=== PATIENT | male | born 1985 ===

== ENCOUNTER 2018-07-19 03:03 | Observation (INO) | payer BC, OTHER ==
[~2018-07-19] VITALS: Ht 180.3 cm; Wt 150.6 kg
[2018-07-19] VITALS (7 sets, daily range): BP systolic 125–139; BP diastolic 76–93
[~2018-07-19 03:03] MED LIST: ACET500T68 PO; ALPR-434 PO; CELECOXIB 200 MG CAP PO ONE; CETI10CA8 PO; CLON-1 PO; DIPH-740 PO; EPIN0.1516 IM; MONT10TA PO; MULT-1335 PO; OMEG-36 PO; OMEP-114 PO; PER PO; POTA99TA6 PO
[2018-07-19] MEDS ORDERED: EPINEPHrine HCL 1 MG/ML AMP ONE (11:40)
[2018-07-19] MEDS ORDERED: ROPIVACAINE 0.2% 20 ML VIAL ONE ×2 (11:58→13:45)
[2018-07-19] MEDS ORDERED: ROPIVACAINE 0.5% 20 ML VIAL ONE (11:58)
[2018-07-19] MEDS ORDERED: DEXAMETHASONE SOD PHOS 10MG/ML ONE (11:59)
[2018-07-19] MEDS ORDERED: LIDOCAINE MPF 1% 5 ML VIAL ONE (12:02)
[2018-07-19] MEDS ORDERED: PROPOFOL EMUL(*) 10MG/ML 20 ML 20 ML ONE ×2 (12:05→14:10)
[2018-07-19] MEDS ORDERED: fentaNYL CITR 250 MCG/5 ML AMP ONE (12:06)
[2018-07-19] MEDS ORDERED: ceFAZolin(*) 2GM/D5W 50ML 50 ML IVPB ONE (13:40)
[2018-07-19] MEDS ORDERED: MIDAZOLAM 2 MG/2 ML VIAL IVP PRN (13:40)
[2018-07-19] MEDS ORDERED: INFLUENZA VIRUS VAC 0.5ML SYR IM ONLY ONE (13:40)
[2018-07-19] MEDS ORDERED: LIDOCAINE/SOD BICARB 8.4% SYR ID ONE (13:40)
[2018-07-19] MEDS ORDERED: NORMOSOL R SOLN(*) 1000 ML BAG 1,000 ML IV PRN (13:40)
[2018-07-19] MEDS ORDERED: CELECOXIB 200 MG CAP PO ONE (13:40)
[2018-07-19] MEDS ORDERED: SUCCINYLCHOL CHL 200MG/10ML VL ONE (14:15)
[2018-07-19] MEDS ORDERED: DEXAMETHASONE SOD 4 MG/ML VIAL ONE (14:18)
[2018-07-19] MEDS ORDERED: ONDANSETRON 4 MG/2 ML VIAL ONE (14:24)
[2018-07-19] MEDS ORDERED: PROMETHAZINE 25 MG/ML 1 ML AMP IVP PRN (17:10)
[2018-07-19] MEDS ORDERED: ONDANSETRON 4 MG/2 ML VIAL IVP PRN (17:10)
[2018-07-19] MEDS ORDERED: ACETAMINOPHEN 500 MG TAB PO PRN (17:10)
[2018-07-19] MEDS ORDERED: FLUSH 10 ML SYR IVP PRN (17:10)
[2018-07-19] MEDS ORDERED: KCL/D5LR 20 MEQ/1000 ML PREMIX 1,000 ML IV PRN (17:10)
[2018-07-19] MEDS ORDERED: diphenhydrAMINE 25 MG CAP PO PRN (17:10)
[2018-07-19] MEDS ORDERED: MAGNESIUM CITRATE 300 ML BTL PO PRN (17:10)
--- NOTE | 2018-07-19 18:12 | RADIOLOGY IMAGING REPORT ---
FACILITY: [facility] PATIENT NAME: Thom Louise : 1985 MR: [id number] V: [id number] EXAM DATE: ORDERING PHYSICIAN: JOVANY FISH TECHNOLOGIST: Location: [facility] [place] Patient: Thom Louise : 1985 Visit/Account:[id number] Date of Sevice: 07/19/2018 CLAVICLE LEFT Indication: Left clavicle reconstruction. Comparison: None available Findings: Two views of the left clavicle. Postsurgical changes to the distal clavicle with linear lucency sugg estive previous screw placement. Alignment appears anatomical. The AC joint appears to be intact. There is no indication of acute fracture or dislocation. No bony lesions. Soft tissues do show subc utaneous air and edema. No radiopaque foreign body. IMPRESSION: Normal alignment. No acute abnormality. No radiopaque foreign body. Report Dictated By: Jovany Wick at 07/19/2018 6:05 PM Report E-Signed By: Jovany Wick at 07/19/2018 6:07 PM WSN:[email or web address]
--- NOTE | 2018-07-19 21:06 | OPERATIVE REPORT 1 ---
EVENT DATE: July 19, 2018 SURGEON: Jovany Barron MD ANESTHESIOLOGIST: Prince Hodgson MD ANESTHESIA: General plus scalene block. MARSH BUGGY OPERATOR: ELINOR Almanzar, KENDRA Gambino PREOPERATIVE DIAGNOSIS Chronic left acromioclavicular joint separation. POSTOPERATIVE DIAGNOSIS Chronic left acromioclavicular joint separation. PROCEDURES PERFORMED 1. Left shoulder lateral claviculectomy (Barbara procedure), (52198). 2. Left shoulder coracoclavicular ligament reconstruction with allograft (open), (14031). ESTIMATED BLOOD LOSS 50 INTRAVENOUS FLUIDS Crystalloid 1000, no colloid. TOURNIQUET TIME None. SPECIMENS None. COMPLICATIONS None. IMPLANTS USED One FiberTape, one Mersilene tape, two 5.5 mm Bio-Tenodesis screws 12 mm in length, and a semitendinosus allograft measuring 5 mm in width. SUMMARY OF PROCEDURE The patient was brought into the operating room. He was well over 350 pounds, which made the procedure challenging for positioning. After a scalene block under ultrasound guidance, Dr. Hodgson undertook general anesthetic, and then he was placed in the beach chair position with a fairly posterior tilt because we did not really need him very upright. After adequate prep and drape, a longitudinal incision was made along the anteroinferior margin of the clavicle towards its lateral margin, approximately splitting the difference on either side of where we assume the coracoid process would be, but it was really rather difficult to palpate given his size. Incision was taken through skin and subcutaneous tissue. We dissected down to identify the fascia and then divided the fascia off the anterior quadrant of the clavicle all the way out to the AC joint. We mobilized the clavicle and freed up the fascia. There was really no evidence of residual coracoclavicular ligaments, but there was still a fairly good region of tissue around the AC joint that we could later use. There was a loose body over the lateral aspect of the clavicle that was removed. It was quite large, measuring almost an inch in length. I assume that this was just the anterior piece of the clavicle that broke at the time of the original injury in association with subsequent bone growth. With this removed, we then identified how much residual clavicle still needed to be removed and trimmed off a bit more to effect approximately 10 mm of resection. Normally, we would do a 45 mm measurement from the lateral clavicle out to the first drill hole for the posterior element on the graft, but in his case, he was so large that we just decided to dissect down the coracoid process first, identified the base, passed a dilator, and then measured from there to see where we needed to be. Having done this, we then positioned the intended conoid and trapezoid ligaments, one in midline, one posterior. We passed the wire and then overdrilled it to 5 to effect a line to line as we had already prepared the semitendinosus graft with whip stitching, and it did measure 5 mm. We then passed FiberTape and the graft along with Mersilene tape. The graft was set up in a [id number] while the Mersilene tape was designed to go directly around the clavicle at the very end, and then the FiberTape went up through the anchors. We used a pigment processor to force the clavicle down while pushing up on the arm and holding him in that position. We over-reduced it initially by design, placed moderate tension on one graft, secured it with the Bio-Tenodesis screw, and then placed significant tension on the other graft and secured this as well. The FiberTape was then tied together under tension, and finally we tied the Mersilene tape. At this point, tension was taken away from the pigment processor, and the joint was nicely reduced and held well. In this particular patient, the most significant problem he had was anterior to posterior instability as well as some elevation, and now this was resolved. We used a gamez to pass the graft through itself and then secured it to itself and then cut off the excess. We used all the scar tissue around the AC joint to repair it using a combination of 0 and #1 Vicryl suture, which also allowed us to close the clavipectoral fascia over itself. This was done following heavy irrigation with pulsatile lavage, and we did this again before closing subcutaneous tissue with Vicryl, followed by 4-0 Monocryl for skin. Steri-Strips were applied. He was given a dry, sterile dressing, and he was then awakened and transferred to the recovery area in stable condition. However, Dr. Hodgson felt it would be best if he spent the night because his oxygen saturation was low, and he had sleep apnea. RED
[2018-07-19] MEDS: ceFAZolin(*) 1 GM VIAL 1 GM in NS(*) 0.9% 100 ML ADDVANT BAG 100 ML IVPB SCH (22:18)
[2018-07-19] MEDS ORDERED: NS(*) 0.9% 250 ML BAG 250 ML ONE (22:19)
[2018-07-20] MEDS: ceFAZolin(*) 1 GM VIAL 1 GM in NS(*) 0.9% 100 ML ADDVANT BAG 100 ML IVPB SCH (06:35)
[2018-07-20] MEDS ORDERED: OXYC5TAB38 PO (07:36)
[2018-07-20] MEDS ORDERED: CEPH500T7 PO (07:36)
[2018-07-20 08:13] VITALS: BP 140/85
== END 2018-07-20 07:31 | disposition home or self-care (01) ==
LOC: OR 03:03 → MED 17:35
PROVIDERS: ADMIT Orthopaedic Surgery Hand Surgery; ATTEND Orthopaedic Surgery Hand Surgery
DX: M24.412 Recurrent dislocation, left shoulder (principal)
CPT/HCPCS: 23120; 23552; 73000; A4565; G0378; J0171; J0330; J0690; J1100; J2001; J2250; J2405; J2704; J2795; J3010; J7050